=== PATIENT | male | born 1945 | race Caucasian/White ===

== ENCOUNTER 2020-01-09 09:31 | Outpatient (CLI) | payer MEDICARE, OTHER, SELFPAY ==
--- NOTE | 2020-01-09 10:11 | XRR_ITS ---
PROCEDURE INFORMATION: Exam: XR Right Hip with Pelvis when Performed Exam date and time: 01/09/2020 10:40 AM Age: 74 years old Clinical indication: Hip pain; Right hip; Additional info: Hip pain RT chronic TECHNIQUE: Imaging protocol: XR Right hip with pelvis when performed. Views: 2 or 3 views. COMPARISON: No relevant prior studies available. FINDINGS: Bones/joints: osseous structures of the pelvis without an acute process. rami are intact. Sacroiliac joints without separation/diastases/fracture. Iliac bones unremarkable/noncontributory Degenerative changes within the hips: Moderate to severe degenerative changes within the right hip and mild degenerative changes left hip. Degenerative changes within the visualized portions of the caudal aspect of the lumbar spine. Moderate Soft tissues: Unremarkable. XR/XR hip RT 2-3V wo/w pel* [id number] IMPRESSION: 1. No acute process. 2. Degenerative changes within the hips: Moderate to severe degenerative changes within the right hip and mild degenerative changes left hip.
--- NOTE | 2020-01-09 10:11 | XRR_ITS ---
PROCEDURE INFORMATION: Exam: XR Cervical Spine, 4 or 5 Views Exam date and time: 01/09/2020 10:40 AM Age: 74 years old Clinical indication: Neck pain; Additional info: Neck pain, chronic TECHNIQUE: Imaging protocol: XR of the cervical spine, 4 or 5 views. COMPARISON: No relevant prior studies available. FINDINGS: Vertebrae: Normal alignment Posterior vertebral line and the spinal laminar line are normal odontoid process normal no fracture Degenerative changes C3-C4 C4-C5, C5-C6 and C6-C7 reflected as disc.space narrowing and anterior osteophyte formation. Neural foraminal narrowing C3-C4 on the left and C6-C7 on the right Soft tissues: Normal. XR/XR cervical spine 4-5V [id number] IMPRESSION: Multilevel degenerative disc disease described above
== END 2020-01-09 09:32 | disposition home or self-care (01) ==
PROVIDERS: Family Provider Family Medicine; PCP Family Medicine; Visit Provider Family Medicine
DX: M16.11 Unilateral primary osteoarthritis, right hip (principal); M47.892 Other spondylosis, cervical region; M25.551 Pain in right hip; M54.2 Cervicalgia
CPT/HCPCS: 72050; 73502

== ENCOUNTER → 2020-05-21 09:00 | Outpatient (BNVA) | payer MEDICARE, OTHER, SELFPAY | PROVIDERS: Family Provider Family Medicine; PCP Family Medicine; Visit Provider Nurse Practitioner Family | DX: I10 Essential (primary) hypertension (principal) | CPT/HCPCS: 80053; 80061; 84439; 84443; 85025 ==

== ENCOUNTER → 2021-01-13 09:00 | Outpatient (BNVA) | payer MEDICARE, SELFPAY | PROVIDERS: Family Provider Family Medicine; PCP Family Medicine; Visit Provider Nurse Practitioner Family | DX: E03.9 Hypothyroidism, unspecified (principal); R79.89 Other specified abnormal findings of blood chemistry; Z68.26 Body mass index [BMI] 26.0-26.9, adult | CPT/HCPCS: 84439; 84443; 84481 ==

== ENCOUNTER 2021-05-19 06:00 | Outpatient (RCR) | payer MEDICARE, SELFPAY | END 2021-05-30 23:59 | disposition home or self-care (01) | LOC: GPT 06:00 | PROVIDERS: Family Provider Family Medicine; PCP Family Medicine; Referring Provider Orthopaedic Surgery Pediatric Orthopaedic Surgery; Visit Provider Orthopaedic Surgery Pediatric Orthopaedic Surgery | DX: M19.041 Primary osteoarthritis, right hand (principal) | CPT/HCPCS: 97110; 97116; 97161; 97530 ==

== ENCOUNTER 2021-05-31 06:00 | Outpatient (RCR) | payer MEDICARE, SELFPAY | END 2021-06-30 23:59 | disposition home or self-care (01) | LOC: GPT 06:00 | PROVIDERS: Family Provider Family Medicine; PCP Family Medicine; Referring Provider Orthopaedic Surgery Pediatric Orthopaedic Surgery; Visit Provider Orthopaedic Surgery Pediatric Orthopaedic Surgery | DX: M16.11 Unilateral primary osteoarthritis, right hip (principal) | CPT/HCPCS: 97110; 97112; 97116; 97164; 97530 ==

== ENCOUNTER 2021-07-01 06:00 | Outpatient (RCR) | payer MEDICARE, SELFPAY | END 2021-07-30 23:59 | disposition home or self-care (01) | LOC: GPT 06:00 | PROVIDERS: PCP Family Medicine; Referring Provider Orthopaedic Surgery Pediatric Orthopaedic Surgery; Visit Provider Orthopaedic Surgery Pediatric Orthopaedic Surgery | DX: M16.11 Unilateral primary osteoarthritis, right hip (principal) | CPT/HCPCS: 97110; 97112; 97116; 97164; 97530 ==

== ENCOUNTER → 2021-07-23 09:25 | Outpatient (BNVA) | payer MEDICARE, SELFPAY | PROVIDERS: Family Provider Family Medicine; PCP Family Medicine; Visit Provider Family Medicine | DX: E03.9 Hypothyroidism, unspecified (principal); I10 Essential (primary) hypertension | CPT/HCPCS: 80053; 80061; 84439; 84443; 85025 ==

== ENCOUNTER 2021-07-31 06:00 | Outpatient (RCR) | payer MEDICARE, SELFPAY | END 2021-08-30 23:59 | disposition home or self-care (01) | LOC: GPT 06:00 | PROVIDERS: PCP Family Medicine; Referring Provider Orthopaedic Surgery Pediatric Orthopaedic Surgery; Visit Provider Orthopaedic Surgery Pediatric Orthopaedic Surgery | DX: M16.11 Unilateral primary osteoarthritis, right hip (principal) | CPT/HCPCS: 97110; 97116; 97530 ==

== ENCOUNTER → 2021-09-16 08:49 | Outpatient (BNVA) | payer MEDICARE, SELFPAY | PROVIDERS: PCP Family Medicine; Visit Provider Nurse Practitioner Family | DX: E03.9 Hypothyroidism, unspecified (principal) | CPT/HCPCS: 84443 ==

== ENCOUNTER → 2022-09-03 09:16 | Outpatient (BNVA) | payer MEDICARE, SELFPAY | PROVIDERS: PCP Family Medicine; Visit Provider Family Medicine | DX: I10 Essential (primary) hypertension (principal) | CPT/HCPCS: 80053; 80061; 84443; 85025 ==

== ENCOUNTER 2023-02-08 06:00 | Outpatient (RCR) | payer OTHER, SELFPAY | END 2023-02-27 23:59 | disposition home or self-care (01) | LOC: GPT 06:00 | PROVIDERS: Visit Provider Family Medicine | DX: M25.511 Pain in right shoulder (principal); M25.512 Pain in left shoulder | CPT/HCPCS: 97110; 97140; 97161 ==

== ENCOUNTER 2023-02-23 07:42 | Outpatient (CLI) | payer OTHER, SELFPAY ==
--- NOTE | 2023-02-23 07:55 | CT_ITS ---
WS: [id number] CT chest w con* [id number] HISTORY: LUNG NODULE TECHNIQUE: Axial imaging performed through the thorax. Coronal and sagittal reformats are submitted. All CT scans at [facility] use at least one of these dose optimization techniques: automated exposure control; mA and/or kV adjustment per patient size (includes targeted exams where dose is mat ched to clinical indication); or iterative reconstruction. CONTRAST: Omnipaque 350; 100 mL IV. DLP: 269.44 mGy.cm COMPARISON: None available. Lungs and central airway: No pulmonary nodule or mass. No endobronchial lesions. Chronic emphysema. Pleura: Normal. No pleural effusion. Heart and pericardium: Normal size heart with no pericardial effusion. Mediastinum and yomaira: No mediastinum or hilar adenopathy. Vessels: Mild atherosclerosis aorta. No aneurysm. Normal size pulmonary artery. Chest wall and lower neck: No soft tissue masses. Upper abdomen: Cholelithiasis. No evidence for acute cholecystitis. No adrenal mass. Osseous structures: Mild thoracic spondylosis. No destructive bone lesions. CT/CT chest w con* [id number] IMPRESSION: 1. Chronic emphysema. No pulmonary nodule or mass. 2. No adenopathy. 3. Cholelithiasis without acute cholecystitis.
[2023-02-23] MEDS: iohexol 350 mg/mL 500 mL Btl (per mL) IV (08:50)
== END 2023-02-23 07:43 | disposition home or self-care (01) ==
LOC: RAD 07:47
PROVIDERS: PCP Family Medicine; Visit Provider Family Medicine
DX: J43.9 Emphysema, unspecified (principal); K80.80 Other cholelithiasis without obstruction
CPT/HCPCS: 71260; Q9967

== ENCOUNTER 2023-02-28 06:00 | Outpatient (RCR) | payer OTHER, SELFPAY | END 2023-03-30 23:59 | disposition home or self-care (01) | LOC: GPT 06:00 | PROVIDERS: PCP Family Medicine; Visit Provider Family Medicine | DX: M25.512 Pain in left shoulder (principal); M25.511 Pain in right shoulder | CPT/HCPCS: 97110; 97112; 97140; 97164; 97530 ==

== ENCOUNTER 2023-03-31 06:00 | Outpatient (RCR) | payer OTHER, SELFPAY | END 2023-04-29 23:59 | disposition home or self-care (01) | LOC: GPT 06:00 | PROVIDERS: PCP Family Medicine; Visit Provider Family Medicine | DX: M25.519 Pain in unspecified shoulder (principal) | CPT/HCPCS: 97110; 97112; 97530 ==

== ENCOUNTER 2023-04-30 06:00 | Outpatient (RCR) | payer OTHER, SELFPAY | END 2023-05-30 23:59 | disposition home or self-care (01) | LOC: GPT 06:00 | PROVIDERS: PCP Family Medicine; Visit Provider Family Medicine | DX: M25.519 Pain in unspecified shoulder (principal) | CPT/HCPCS: 97110; 97112; 97164; 97530 ==

== ENCOUNTER 2023-05-31 06:00 | Outpatient (RCR) | payer OTHER, SELFPAY | END 2023-06-30 23:59 | disposition home or self-care (01) | LOC: GPT 06:00 | PROVIDERS: PCP Family Medicine; Visit Provider Family Medicine | DX: M25.519 Pain in unspecified shoulder (principal) | CPT/HCPCS: 97110 ==

== ENCOUNTER 2023-07-01 06:00 | Outpatient (RCR) | payer OTHER, SELFPAY | END 2023-07-15 11:01 | disposition home or self-care (01) | LOC: GPT 06:00 | PROVIDERS: PCP Family Medicine; Visit Provider Family Medicine | DX: M25.512 Pain in left shoulder (principal); M25.511 Pain in right shoulder | CPT/HCPCS: 97110; 97112; 97530 ==

== ENCOUNTER → 2023-08-08 09:06 | Outpatient (BNVA) | payer MEDICARE, SELFPAY | PROVIDERS: PCP Family Medicine; Visit Provider Nurse Practitioner Family | DX: Z12.5 Encounter for screening for malignant neoplasm of prostate (principal); E03.9 Hypothyroidism, unspecified; I10 Essential (primary) hypertension | CPT/HCPCS: 80053; 80061; 84443; G0103 ==

== ENCOUNTER → 2024-08-14 09:20 | Outpatient (BNVA) | payer MEDICARE, SELFPAY | PROVIDERS: PCP Family Medicine; Visit Provider Nurse Practitioner Family | DX: I10 Essential (primary) hypertension (principal); E03.9 Hypothyroidism, unspecified | CPT/HCPCS: 80053; 80061; 84443 ==

== ENCOUNTER → 2025-08-16 09:00 | Outpatient (BNVA) | payer MEDICARE, SELFPAY | PROVIDERS: PCP Nurse Practitioner Family; Visit Provider Nurse Practitioner Family | DX: I10 Essential (primary) hypertension (principal); E03.9 Hypothyroidism, unspecified | CPT/HCPCS: 80053; 80061; 84443; 85025 ==